=== PATIENT | female | born 1940 | race Caucasian/White ===

== ENCOUNTER 2019-05-13 09:17 | Emergency (ER) | payer MEDICARE ==
[~2019-05-13] VITALS: Ht 170.2 cm; Wt 88.6 kg
[2019-05-13 09:21] VITALS: TEMP 98.1
[2019-05-13] MEDS ORDERED: SYNTHROID0.112 MG/T PO (09:27)
[2019-05-13] MEDS ORDERED: PRAVACHOL10 MG PO (09:28)
[2019-05-13] MEDS ORDERED: MASON NATURAL2000 IU (09:28)
[2019-05-13] MEDS ORDERED: ZYRTEC 10MG10 MG PO (09:29)
[2019-05-13 12:52] VITALS: PULSE 63
[2019-05-13] MEDS ORDERED: NORCO 325 MG-51 TAB PO (13:28)
[2019-05-13 13:53] VITALS: BP 133/78
[2019-05-14] MEDS ORDERED: ASPIRIN 81M81 MG/TA2 PO (08:04)
[2019-05-14] MEDS ORDERED: LASIX 20MG TABL20 MG PO (08:05)
== END 2019-05-13 13:53 | disposition home or self-care (01) ==
LOC: COL.ER 09:17
DX: S82.832A Other fracture of upper and lower end of left fibula, initial encounter for closed fracture (principal); E03.9 Hypothyroidism, unspecified; E78.5 Hyperlipidemia, unspecified; W00.0XXA Fall on same level due to ice and snow, initial encounter; X50.1XXA Overexertion from prolonged static or awkward postures, initial encounter; Y92.009 Unspecified place in unspecified non-institutional (private) residence as the place of occurrence of the external cause
CPT/HCPCS: J2405; J3010; J7030; Q4045

== ENCOUNTER 2019-05-14 07:35 | Emergency (ER) | payer MEDICARE ==
[~2019-05-14] VITALS: Ht 170.2 cm; Wt 88.2 kg
[~2019-05-14 07:35] MED LIST: MASON NATURAL2000 IU; NORCO 325 MG-51 TAB PO; PRAVACHOL10 MG PO; SYNTHROID0.112 MG/T PO; ZYRTEC 10MG10 MG PO
[2019-05-14 07:38] VITALS: TEMP 98.5
[2019-05-14] MEDS ORDERED: ASPIRIN 81M81 MG/TA2 PO (08:04)
[2019-05-14] MEDS ORDERED: LASIX 20MG TABL20 MG PO (08:05)
--- NOTE | 2019-05-14 12:12 | NUR ---
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 Patient and daughter state that daughter is unable to care for patient in her apartment and agrees with needed 24 hour care. Patient has orthopedics appointment today at 2:00. Patient will not be admitted to the hospital. Worker provided resources for in home care and fci care. Worker provided information on private pay rates and patient chose [facility]. Worker gave a referral to the [facility] and also arranged for At Home assisted care to visit with patient and daughter for future care needs. Awaiting to see if the [facility] can take patient today, private pay. [facility] is attempting to get authorization from patient's insurance for possible coverage.
[2019-05-14 13:00] VITALS: BP 103/79; PULSE 76
--- NOTE | 2019-05-14 13:08 | NUR ---
Berry with [facility] has receive authorization from patient's insurance for a skilled stay. Worker received a call from [employer] #[phone] with [facility] who provided authorization # [id number] for approval to transfer to [facility] for skilled stay. Worker met with patient and daughter and they are agreeable with above plan and are aware of the costs for deductible and co-pays. Worker faxed orders to [facility]. 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
== END 2019-05-14 13:05 | disposition home or self-care (01) ==
LOC: COL.ER 07:35
DX: S82.892A Other fracture of left lower leg, initial encounter for closed fracture (principal); R40.2412 Glasgow coma scale score 13-15, at arrival to emergency department; Z79.82 Long term (current) use of aspirin; W19.XXXA Unspecified fall, initial encounter; Y92.002 Bathroom of unspecified non-institutional (private) residence as the place of occurrence of the external cause
CPT/HCPCS: J3010; J7030; Q4045